=== PATIENT | male | born 1975 | race Caucasian/White ===

== ENCOUNTER 2021-06-01 03:32 | Emergency (ER) | payer OTHER, SELFPAY ==
--- NOTE | ~2021-06-01 | CT_ITS ---
EXAMINATION: CT brain wo con DATE: 06/01/2021 04:05 INDICATION: Headache. TECHNIQUE: Computed tomography (CT) of the head was performed without intravenous contrast. The mA wa s adjusted according to patient size. Iterative reconstruction technique was employed. The dose-lengt h product was 681.00 mGy-cm. COMPARISON: Head CT 07/15/2012, brain MRI 07/18/2012 FINDINGS: There are scattered areas of low attenuation in the cerebral white matter. There is no intr acranial hemorrhage, acute infarction, or abnormal intracranial mass lesion. The ventricles are sumeet l in size. There is mucosal thickening in left maxillary sinus. The mastoid air cells are normal. The orbits are normal. IMPRESSION: 1. Stable moderate nonspecific cerebral white matter disease, most likely multiple sclerosis. Reviewed, dictated and finalized at location A. RAL WAREHOUSE ASSOCIATE IMPRESSION: 1. Stable moderate nonspecific cerebral white matter disease, most likely multi ple sclerosis.
--- NOTE | ~2021-06-01 | XR_ITS ---
EXAMINATION: XR chest 2V DATE: 06/01/2021 04:16 INDICATION: Chest pain. TECHNIQUE: Frontal and lateral views of the chest were obtained. COMPARISON: Chest 2 views 04/13/2017 FINDINGS: Calcified left lung nodules are consistent with old granulomatous disease. There is mild at electasis at left lung base. No pleural effusion or pneumothorax without size is normal. IMPRESSION: 1. Mild atelectasis at left lung base. Reviewed, dictated and finalized at location A. ERN DUPLICATOR
--- NOTE | 2021-06-01 03:43 | ECG_ITS ---
Measurements Intervals [place] Rate: 68 P: 65 MT: 170 QRS: 23 QRSD: 96 T: 47 QT: 411 QTc: 438 Interpretive Statements SINUS RHYTHM POSSIBLE RIGHT VENTRICULAR CONDUCTION DELAY NO PREVIOUS ECG AVAILABLE FOR COMPARISON Electronically Signed On 06-01-2021 9:45:41 ADMISSIONS COUNSELOR by Shaheen Almanzar M.D.
[2021-06-01 03:44] VITALS: BP 139/90; PULSE 76; RESP 16; TEMP 37.2; O2SAT 97
--- NOTE | 2021-06-01 03:54 | ED.CHESTPAIN ---
HPI - Chest Pain General Chief Complaint: Headache Stated Complaint: heart attack symptoms , headache, blurred vision Time Seen by Provider: 06/01/21 03:50 Source: patient Mode of arrival: ambulatory Limitations: no limitations History of Present Illness HPI narrative: Patient is a 46-year-old male complaining of heart attack symptoms described as left upper extremity pain, 6 out of 10, radiating to left neck accompanied by headache and blurred vision that started this morning. Patient also states that he has been short of breath on exertion the past few days. Patient denies any chest pain, abdominal pain, nausea, vomiting, diaphoresis, fever or chills. Related Data Allergies Allergy/AdvReac Type Severity Reaction Status Date / Time No Known Allergies Allergy Unverified 07/26/12 10:46 Review of Systems Review of Systems: All systems reviewed & are unremarkable except as noted in HPI and below Constitutional: Constitutional: Denies body ache(s), Denies chills, Denies excessive sweating, Denies fatigue, Denies fever(s), Denies headache(s), Denies lethargy, Denies malaise, Denies weakness and Denies weight loss Eyes: Eyes: Denies blurry vision, Denies change in vision and Denies loss of vision ENT: Denies dizziness, Denies ear discharge, Denies headache(s), Denies lip swelling, Denies epistaxis, Denies nasal congestion, Denies neck pain, Denies throat swelling and Denies tongue swelling Cardiovascular: Cardiovascular: Denies chest pain, Denies chest pain at rest, Denies chest pain with activity, Denies diaphoresis, Denies rapid heart rate, Denies edema, Denies irregular heart rhythm, Denies lightheadedness, Denies palpitations, Denies dyspnea and Denies dyspnea on exertion Respiratory: Respiratory: Denies chest congestion, Denies cough, Denies hemoptysis, Denies dyspnea and Denies dyspnea on exertion Gastrointestinal: Gastrointestinal: Denies abdominal pain, Denies melena, Denies hematochezia, Denies diarrhea, Denies nausea, Denies vomiting and Denies hematemesis Musculoskeletal: Musculoskeletal: Denies abnormal gait, Denies deformity, Denies joint swelling, Denies limited range of motion, Denies neck pain and Denies numbness Neurologic: Denies Abnormal speech present, Denies abnormal gait, Denies confusion, Denies dizziness, Denies focal weakness, Denies loss of vision, Denies numbness, Denies Other visual disturbances, Denies Sensory deficit (Neuro) and Denies weakness Psychiatric: Psychiatric: Denies confusion, Denies depression, Denies auditory hallucinations, Denies homicidal ideation and Denies suicidal ideation Endocrine: Endocrine: Denies cold intolerance, Denies excessive sweating, Denies fatigue, Denies heat intolerance and Denies palpitations Hematologic/Lymphatic: Hematologic/Lymphatic: Denies easy bleeding and Denies easy bruising Allergic/Immunologic: Allergic/Immunologic: Denies lip swelling, Denies throat swelling and Denies tongue swelling PMFSH Family History Family History Mother Family history of heart disease in male family member before age 55 Other Cerebrovascular accident Family history of allergic disorder Hypertension Social History Social History Alcohol intake: current Comments Past medical history: Hypertension Social history: Smoker, occasional EtOH use, denies any drug use Exam Const: General: cooperative, healthy appearing, comfortable, no acute distress, well developed, alert and awake; No confusion Orientation/consciousness: oriented to person, oriented to place, oriented to time, patient oriented x3 and No confusion Limitations: no limitations HENMT: Head: normal to inspection, normocephalic and atraumatic Ears: hearing grossly normal bilaterally, TM normal on the right and TM normal on the left General nose exam: Normal external nose present, Normal nares present and N
[2021-06-01 03:57] LABS: Basophils Absolute Auto 0.1 K/mm3 (0.0-0.1); Basophils Percent Auto 0.9 % (0.2-1.2); Eosinophils Absolute Auto 0.2 K/mm3 (0-0.3); Eosinophils Percent Auto 1.9 % (0-4.4); Hematocrit 47.9 % (42.0-52.0); Hemoglobin 16.4 g/dL (14.0-18.0); Immature Granulocyte Absolute 0.04 K/mm3 (0.00-0.031); Immature Granulocyte Percent A 0.4 % (0-0.5); Lymphocytes Absolute Auto 1.86 K/mm3 (0.9-3.2); Lymphocytes Percent Auto 19.4 % (18.3-44.2); Mean Corpuscular HGB Conc 34.2 g/dl (32-36); Mean Corpuscular Hemoglobin 31.5 pg (26-34); Mean Corpuscular Volume 91.9 fl (80-100); Mean Platelet Volume 10.1 fl (7.4-10.4); Monocytes Absolute Auto 1.5 K/mm3 (0.1-0.6); Monocytes Percent Auto 15.5 % (2.6-8.5); Neutrophils Percent Auto 61.9 % (45.5-73.1); Platelet Count Result 243 k/mm3 (150-375); Red Blood Count 5.21 M/mm3 (4.6-6.20); Red Cell Distribution Width 13.5 % (11.5-14.5); White Blood Count 9.6 K/mm3 (4.5-10.0)
[2021-06-01 04:06] LABS: Prothrombin Time 12.4 Seconds (11.1-14.7)
[2021-06-01 04:07] LABS: Partial Thromboplastin Time 29.8 SECONDS (22.3-36.8)
[2021-06-01 04:09] LABS: Alanine Aminotransferase 29 U/L (4-50); Albumin Level 4.3 g/dL (3.5-5.1); Alkaline Phosphatase 82 U/L (38-126); Anion Gap 7 mmol/L (8-16); Aspartate Amino Transferase 30 U/L (17-59); Bilirubin,Total 0.4 mg/dL (0.2-1.3); Blood Urea Nitrogen 12 mg/dL (9-20); Calcium 9.1 mg/dL (8.4-10.2); Carbon Dioxide 26 mmol/L (22-30); Chloride 106 mmol/L (98-107); Estimated CRCL calculation 123 ml/min; Estimated Glomerular Filt Rate > 60; Glucose 105 mg/dL (65-110); Potassium 3.9 mmol/L (3.4-5.0); Sodium 139 mmol/L (137-145)
[2021-06-01] MEDS: ACETAMINOPHEN 500 MG TABLET 1000 MG PO (04:15)
[2021-06-01] MEDS: ASPIRIN 81 MG CHEWABLE TABLET 324 MG PO (04:16)
[2021-06-01 04:21] LABS: Troponin I < 0.012 ng/mL (0.000-0.034)
[2021-06-01 05:24] VITALS: BP 110/72; PULSE 70; RESP 16; O2SAT 99
[2021-06-01 06:29] VITALS: BP 112/68; PULSE 71; RESP 15; O2SAT 98
== END 2021-06-01 06:32 | disposition left against medical advice (07) ==
PROVIDERS: Emergency Provider Emergency Medicine; PCP Family Medicine Adolescent Medicine
DX: R07.9 Chest pain, unspecified (principal); R51.9 Headache, unspecified; I10 Essential (primary) hypertension; F17.200 Nicotine dependence, unspecified, uncomplicated; R94.31 Abnormal electrocardiogram [ECG] [EKG]
CPT/HCPCS: 36415; 70450; 71046; 80053; 84484; 85025; 85610; 85730; 93005; 99284; A9270

== ENCOUNTER 2021-06-11 15:16 | Outpatient (CLI) | payer OTHER, SELFPAY ==
--- NOTE | ~2021-06-11 | US_ITS ---
EXAMINATION: US carotid duplex BI DATE: 06/11/2021 15:54 INDICATION: Atherosclerosis. Visual disturbances. TECHNIQUE: Grayscale, color Doppler, and pulsed Doppler images of the cervical carotid arteries were obtained. The degree of vessel stenosis is placed in one of the following categories: normal, <50%, 5 0-69%, >=70% but less than near-occlusion, near-occlusion, or total occlusion. Note that percent sten osis relative to normal distal artery lumen diameter is indirectly measured from velocity measurement s as described by Manpreet, et al. Radiology 2003; 229:340-346. Notes: Normal: Peak systolic velocity <125 centimeters/sec and no plaque <50%. Peak systolic velocity <125 ( EDV <40; ICA/CCA PSV ratio <2.0; used these factors only a tandem lesions or low cardiac output or co ntralateral disease) 50-69 %: PSV 125-230 (EDV 40-100; ratio 2-4) >= 70% but less than near occlusion: PSV greater than 230 (EDV > 100; ratio> 4.0) Near Occlusion: PSV that is variable; markedly narrowed lumen Occlusion: Absent flow on color/spectral Doppler and no lumen on pond scale. COMPARISON: None. FINDINGS: RIGHT: The right common carotid artery (CCA) peak systolic velocity (PSV) is 121 cm/s. The right internal ca rotid artery (ICA) PSV is 112 cm/s. The right ICA end-diastolic velocity (EDV) is 40 cm/s. The right ICA/CCA PSV ratio is 0.9. The external carotid artery (ECA) PSV is 89 cm/s. There is antegrade flow i n the right vertebral artery. LEFT: The left CCA PSV is 133 cm/s. The left ICA PSV is 102 cm/s. The left ICA EDV is 44 cm/s. The left ICA /CCA PSV ratio is 0.8. The ECA PSV is 100 cm/s. There is antegrade flow in the left vertebral artery . IMPRESSION: 1. Less than 50% stenosis in the right internal carotid artery by sonographic criteria. 2. Less than 50% stenosis in the left internal carotid artery by sonographic criteria. Reviewed, dictated and finalized at location B. IMPRESSION: 1. Less than 50% stenosis in the right internal carotid artery by sonographic c mallorie. 2. Less than 50% stenosis in the left internal carotid artery by sonographic cr jose d.
== END 2021-06-11 15:17 | disposition home or self-care (01) ==
LOC: ANHIMG 15:20
PROVIDERS: PCP Family Medicine Adolescent Medicine; Visit Provider Physician Assistant
DX: R07.89 Other chest pain (principal); H53.9 Unspecified visual disturbance; I65.23 Occlusion and stenosis of bilateral carotid arteries
CPT/HCPCS: 93880

== ENCOUNTER → 2021-06-23 13:58 | Outpatient (CLI) | payer OTHER, SELFPAY ==
--- NOTE | ~2021-06-23 | MR_ITS ---
EXAMINATION: MR brain/brain stem wo/w con DATE: 06/23/2021 15:14 INDICATION: Unspecified visual disturbance. TECHNIQUE: Magnetic resonance imaging (MRI) of the brain and brainstem was performed without and with 19 mL MultiHance intravenous contrast. Sequences included sagittal and axial T1-weighted FLAIR, axia l T1-weighted FSE, axial diffusion-weighted FS EPI, sagittal T2-weighted FLAIR, axial T2*-weighted GR E, axial T2-weighted FLAIR Propeller, and axial T2-weighted Propeller. Postcontrast sequences include d axial, coronal, and sagittal T1-weighted FSE. Apparent diffusion coefficient (ADC) maps were create d. COMPARISON: Brain MRI 07/18/2012, CT 06/01/2021 FINDINGS: There are greater than 40 total lesions of increased T2-weighted signal intensity in the br ain. Of these lesions, many are periventricular, several are juxtacortical, and one is infratentorial . None of the lesions enhance. There is no acute ischemic infarct or intracranial hemorrhage. The lisa tricles are normal in size. The mastoid air cells are normal. There is mild mucosal thickening left m axillary sinus. The orbits are normal. IMPRESSION: 1. Brain white matter lesions, mildly worsened from 07/18/2012, likely multiple sclerosis. Reviewed, dictated and finalized at location A.
--- NOTE | ~2021-06-23 | MR_ITS ---
EXAMINATION: MR cervical spine wo/w con DATE: 06/23/2021 15:15 INDICATION: Multiple sclerosis. Unspecified visual disturbance. TECHNIQUE: Magnetic resonance imaging (MRI) of the cervical spine was performed without and with 19 m L MultiHance intravenous contrast. Sequences included sagittal and axial T2-weighted FSE, sagittal T2 -weighted FS FSE, and sagittal and axial T1-weighted FSE. Postcontrast sequences included sagittal an d axial T1-weighted FS FSE. COMPARISON: None FINDINGS: There is 5 degrees levocurvature of cervical spine. There is mild chronic anterior wedging of T1 vertebral body. There is mildly decreased disc height at C5-C6. There is a lesion of increased T2-weighted signal intensity in the spinal cord at C2 on the left. No abnormal contrast enhancement. The following disc levels are specifically discussed: C2-C3: There is a central extrusion. There is no uncovertebral joint osteoarthritis. There is mild bi lateral facet joint osteoarthritis. There is no neural foraminal stenosis. There is no central canal stenosis. C3-C4: The disc does not extend beyond the endplate margin. There is mild right and severe left uncov ertebral joint osteoarthritis. There is severe right and mild left facet joint osteoarthritis. There is mild right and moderate left neural foraminal stenosis. There is no central canal stenosis. C4-C5: The disc is bulging. There is mild right and moderate left uncovertebral joint osteoarthritis. There is mild right and moderate left facet joint osteoarthritis. There is mild right and moderate l eft neural foraminal stenosis. There is mild central canal stenosis. C5-C6: There is a central extrusion. There is mild bilateral uncovertebral joint osteoarthritis. Ther e is moderate right and mild left facet joint osteoarthritis. There is mild bilateral neural foramina l stenosis. There is mild central canal stenosis. C6-C7: The disc does not extend beyond the endplate margin. There is mild left uncovertebral joint os teoarthritis. There is mild right facet joint osteoarthritis. There is no neural foraminal stenosis. There is no central canal stenosis. C7-T1: The disc does not extend beyond the endplate margin. There is no uncovertebral joint osteoarth ritis. There is severe bilateral facet joint osteoarthritis. There is mild bilateral neural foraminal stenosis. There is no central canal stenosis. IMPRESSION: 1. Spinal cord lesion at C2, consistent with multiple sclerosis. 2. Moderate cervical spondylosis. Reviewed, dictated and finalized at location A.
[2021-06-23 14:26] LABS: Estimated Glomerular Filt Rate > 60
== END ==
PROVIDERS: PCP Family Medicine Adolescent Medicine; Visit Provider Physician Assistant
DX: H53.9 Unspecified visual disturbance (principal); G95.9 Disease of spinal cord, unspecified; M47.813 Spondylosis without myelopathy or radiculopathy, cervicothoracic region; M48.03 Spinal stenosis, cervicothoracic region
CPT/HCPCS: 70553; 72156; A9577

== ENCOUNTER 2022-11-24 08:34 | Outpatient (CLI) | payer OTHER, SELFPAY ==
--- NOTE | 2022-11-24 08:58 | EST_ITS ---
Patient Info Name: Bolivar Larose Age: 47 years : 1975 Gender: Male Ht: 72 in Wt: 220 lbs BSA: 2.27 m2 Exam Date: 11/24/2022 9:12 AM Exam Location: [facility] Stress Patient Status: Outpatient Admit Date: 11/24/2022 Staff Ordering Physician: Shahrzad Hanna APRN Attending Provider: Shahrzad Hanna APRN Exercise Technologist: Jodi Castle RDCS Exercise Physician: Percy Park DO Exam Type: CA stress test treadmill Study Info Indications R42 - Dizziness and giddiness R06.09 - Other forms of dyspnea A treadmill exercise stress test was performed. Summary 1. 1. Negative Ace exercise stress test for ischemic ST changes by ECG criteria. 2. 2. Reduced functional capacity, achieving 10 METs of workload. 3. 3. Appropriate HR response to exercise. 4. 4. Appropriate HR recovery at 1 minute post exercise. 5. 5. No imaging with stress testing. 6. 6. Patient informed of the above results. Protocol: Ace Stress ECG Details Stage: REST Duration (min): 0 min : 48 sec Speed (mph): 0.0 Grade (%): 0 HR (bpm): 60 SBP (mmHg): 119 DBP (mmHg): 86 METS: --- Stage: REST Duration (min): 12 min : 25 sec Speed (mph): 0.0 Grade (%): 0 HR (bpm): 72 SBP (mmHg): 119 DBP (mmHg): 86 METS: --- Stage: STAGE 1 Duration (min): 1 min : 0 sec Speed (mph): 1.7 Grade (%): 10 HR (bpm): 105 SBP (mmHg): 119 DBP (mmHg): 86 METS: --- Stage: STAGE 1 Duration (min): 2 min : 0 sec Speed (mph): 1.7 Grade (%): 10 HR (bpm): 112 SBP (mmHg): 119 DBP (mmHg): 86 METS: --- Stage: STAGE 1 Duration (min): 3 min : 0 sec Speed (mph): 1.7 Grade (%): 10 HR (bpm): 112 SBP (mmHg): 169 DBP (mmHg): 80 METS: --- Stage: STAGE 2 Duration (min): 1 min : 0 sec Speed (mph): 2.5 Grade (%): 12 HR (bpm): 124 SBP (mmHg): 169 DBP (mmHg): 80 METS: --- Stage: STAGE 2 Duration (min): 2 min : 0 sec Speed (mph): 2.5 Grade (%): 12 HR (bpm): 136 SBP (mmHg): 157 DBP (mmHg): 82 METS: --- Stage: STAGE 2 Duration (min): 3 min : 0 sec Speed (mph): 2.5 Grade (%): 12 HR (bpm): 137 SBP (mmHg): 157 DBP (mmHg): 82 METS: --- Stage: STAGE 3 Duration (min): 1 min : 0 sec Speed (mph): 3.4 Grade (%): 14 HR (bpm): 149 SBP (mmHg): 178 DBP (mmHg): 88 METS: --- Stage: STAGE 3 Duration (min): 2 min : 0 sec Speed (mph): 3.4 Grade (%): 14 HR (bpm): 153 SBP (mmHg): 178 DBP (mmHg): 88 METS: --- Stage: STAGE 3 Duration (min): 2 min : 0 sec Speed (mph): 3.4 Grade (%): 14 HR (bpm): 153 SBP (mmHg): 178 DBP (mmHg): 88 METS: --- Stage: RECOVERY Duration (min): 0 min : 59 sec Speed (mph): 0.0 Grade (%): 0 HR (bpm): 118 SBP (mmHg): 172 DBP (mmHg): 95 METS: --- Stage: RECOVERY Duration (min): 1 min : 59 sec Speed (mph): 0.0 Grade (%): 0 HR (bpm): 98 SBP (mmHg): 172 DBP (mmHg): 95 METS: ---
== END 2022-11-24 08:35 | disposition home or self-care (01) ==
PROVIDERS: PCP Family Medicine Adolescent Medicine; Visit Provider Nurse Practitioner Family
DX: R06.09 Other forms of dyspnea (principal); R42 Dizziness and giddiness; Z13.220 Encounter for screening for lipoid disorders
CPT/HCPCS: 93017

== ENCOUNTER 2024-06-17 16:10 | Outpatient (CLI) | payer OTHER, SELFPAY ==
--- NOTE | ~2024-06-17 | CT_ITS ---
EXAMINATION: CT lung screening DATE: 06/17/2024 16:21 INDICATION: F17.200 - Nicotine dependence, unspecified, uncomplicated TECHNIQUE: Computed tomography (CT) of the chest was performed without intravenous contrast. Addition al 3D reconstructions utilizing coronal maximum intensity projection (MIP) were performed. Automated exposure control and iterative reconstruction technique were employed. The dose-length product was 11 6.20 mGy-cm. COMPARISON: None FINDINGS: Mild emphysema. 9 mm centrally calcified nodule at the right lung base along with calcified right hil ar and mediastinal lymph nodes consistent with old granulomatous disease. 5 suspicious noncalcified p ulmonary nodules, pneumonia, pulmonary edema or pleural effusion. Heart size is normal. Atherosclerot ic coronary artery calcifications. No pericardial effusion. Thoracic aorta is normal in caliber. No p athologically enlarged thoracic lymphadenopathy. Visualized upper abdomen is unremarkable. Mild thora cic spondylosis. IMPRESSION: 1. Lung-RADS category 1: Negative. Continue annual screening with noncontrast low-dose chest CT in 12 months. Reviewed, dictated and finalized at location B. IMPRESSION: 1. Lung-RADS category 1: Negative. Continue annual screening with noncontrast l ow-dose chest CT in 12 months.
== END 2024-06-17 16:11 | disposition home or self-care (01) ==
LOC: MICIMG 16:11
PROVIDERS: PCP Family Medicine Adolescent Medicine; Visit Provider Family Medicine
DX: Z12.2 Encounter for screening for malignant neoplasm of respiratory organs (principal); Z87.891 Personal history of nicotine dependence
CPT/HCPCS: 71271

== ENCOUNTER 2024-12-17 16:15 | Emergency (ER) | payer OTHER, SELFPAY ==
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
--- OUTSIDE RECORDS SUMMARY | 2024-12-17 16:17 | XMS_ITS | Encounter Summary ---
Author Organization [facility] Healthcare Address [address] [place] [address] Care Team Providers Care Seafood Farmer Name Role Phone Aidan Almonte MD Primary Care Prov ider No, Physician Primary Care Provider [phone] Aidan Almonte MD Primary Care Prov ider Aidan Almonte MD Unavailable + Didier Mccarthy MD Unavailable [phone] Encounter Details Date Type Department Care Team (Late st Contact Info) Description 12/10/2020 Telephone [facility] [address] [place] [address] Transcribed Order, Provider Social History Tobacco Use Types Packs/Day Years Used Date Smoking Tobacco: Every Day Cigarettes 1 32 Smokeless Tobacco: Never Alcohol Use Standard Drinks/Week Comments Yes 0 (1 standard drink = 0.6 oz pur e alcohol) occ Sex and Gender Information Value Date Recorded Sex Assigned at Not on file Legal Sex Male 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 Gender Identity Male 06/02/2020 11:12 AM MATERNAL CHILD NURSE Sexual Orientation Straight 06/02/2020 11 :12 AM MATERNAL CHILD NURSE documented as of this encounter Plan of Treatment Not on file documented as of this encounter Visit Diagnoses Not on filedocumented in this encounter Care Teams Seafood Farmer Relationship Specialty Start Date End Date Aidan Almonte MD PCP - General 08/03/16 10/23/21 No, Physician PCP - General 10/24/21 10/24/21 Aidan Almonte MD PCP - General Family Medicine 10/25/21 Aidan Almonte MD 10/24/21 Didier Mccarthy MD [address] [place] [address] [place] [address] Referring Physician Psychiatry 05/05/22 documented as of this encounter
--- OUTSIDE RECORDS SUMMARY | 2024-12-17 16:17 | XMS_ITS | Encounter Summary ---
Author Organization [facility] Address [address] [place] [address] Phone Care Team Providers Care Documentation Liaison Name Role Phone Aidan Almonte MD Primary Care Prov ider Aidan Almonte MD Unavailable + Didier Mccarthy MD Unavailable [phone] Reason for Visit * Reason Onset Date Comments WORK STATUS 01/20/2022 Encounter Details Date Type Department Care Team (Late st Contact Info) Description 01/20/2022 Telephone [facility] 6[address] [place] [address] [place] [address] Vandana Pal RN WORK STATUS Social History Tobacco Use Types Packs/Day Years Used Date Smoking Tobacco: Every Day Cigarettes 1 35 Smokeless Tobacco: Never Alcohol Use Standard Drinks/Week Comments Yes 0 (1 standard drink = 0.6 oz pur e alcohol) occ Sex and Gender Information Value Date Recorded Sex Assigned at Not on file Legal 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 Male 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
--- OUTSIDE RECORDS SUMMARY | 2024-12-17 16:17 | XMS_ITS | Clinical Summary ---
Author Organization [facility] Address [address] [place] [address] Phone Care Team Providers Care Aircraft Riveter Name Role Phone Unavailable Primary Care Provider Unavailabl e Allergies No known active allergies Medications tamsulosin (FLOMAX) 0.4 mg capsule Take 0.4 mg by mouth daily. Active solifenacin (VESICARE) 5 mg Tablet Take 5 mg by mouth daily. Active interferon beta-1a, albumin, (AVONEX) 30 mcg KitIndications :Pt takes REBIF Inject 30 mcg by intramuscular injection every 7 days. Active folic acid (FOLVITE) 400 mcg Tablet Take 400 mcg by mouth daily. Active thiamine (VITAMIN B-1) 100 mg tablet Take 1 Tablet (100 mg) by mouth daily. 5 Active traZODone (DESYREL) 50 mg tablet Take 1 Tablet (50 mg) by mouth nightly as needed for Insomnia. 30 Tablet 0 5 Active risperiDONE (RISPERDAL) 1 mg tabletIndicati ons:Halluciant ions. Take 1 Tablet (1 mg) by mouth daily at bedtime. 30 Tablet 0 5 Active clonazePAM (KLONOPIN) 0.5 mg Tablet Take 1 Tablet (0.5 mg) by mouth 2 times daily as needed for Anxiety. 20 Tablet 0 5 Active risperiDONE (RISPERDAL) 0.5 mg tabletIndicati ons:paranoia Take 1 Tablet (0.5 mg) by mouth daily after breakfast. 30 Tablet 0 5 Active Active Problems Problem Noted Date Diagnosed Date Delirium due to another medical condition 2014 Major depressive disorder, r ecurrent, severe with psychotic features 01/28/2015 Alcohol abuse 01/28/2015 Psychotic disorder with hallucinations 5 Tobacco use 01/27/2015 Acute encephalopathy MS (multiple sclerosis) Suicidal ideations Social History Tobacco Use Types Packs/Day Years Used Date Smoking Tobacco: Every Day Cigarettes Alcohol Use Standard Drinks/Week Comments Yes 0 (1 standard drink = 0.6 oz pur e alcohol) Sex and Gender Information Value Date Recorded Sex Assigned at Not on file Legal Sex Male 10:30 PM PUSHER OPERATOR Gender Identity Not on file Sexual Orientation Not on file Last Filed Vital Signs Vital Sign Reading Time Taken Comments Blood Pressure 104/72 01/30/2015 8:37 AM PUSHER OPERATOR Pulse 68 01/30/2015 8:37 AM PUSHER OPERATOR Temperature 36.6 C (97.8 F) 01/30/2015 8:37 AM PUSHER OPERATOR Respiratory Rate 16 01/30/2015 8:37 AM PUSHER OPERATOR Oxygen Saturation 98% 01/30/2015 8:37 AM PUSHER OPERATOR Inhaled Oxygen Concentration - - Weight 81.2 kg (179 lb 1.6 oz) 01/29/2015 3:36 P M PUSHER OPERATOR Height 185.4 cm (6' 1) 01/28/2015 3:13 PM PUSHER OPERATOR Body Mass Index 23.63 01/28/2015 3:13 PM PUSHER OPERATOR Plan of Treatment Health Maintenance Due Date Last Done Comments DTAP/TDAP/TD VACCINES (1 - Tdap) 1993 HEPATITIS B VACCINES (1 of 3 - 19+ 3-dose series) 04/28 COLORECTAL SCREENING 2019 Colorectal Cancer Screening 2019 FIT-DNA Q 3 years 2019 FIT/FOBT Q 1 year 2019 Flex Sig/CT Colonography Q 5 years 2019 ZOSTER VACCINE (1 of 2) 2024 INFLUENZA VACCINE (#1) 2024 Insurance [facility] OPT[employer] PPO [id number] Advance Directives For more information, please contact: [phone] * Full Code (Latest Code Status on File) Date Activated Date Inactivated Comments 01/28/2015 3:14 PM 01/30/2015 2:53 PM
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
--- OUTSIDE RECORDS SUMMARY | 2024-12-17 16:17 | XMS_ITS | Encounter Summary ---
Author Organization [facility] Healthcare Address [address] [place] [address] Care Team Providers Care Manual Tester Name Role Phone Aidan Almonte MD Primary Care Prov ider Aidan Almonte MD Unavailable + Didier Mccarthy MD Unavailable [phone] Encounter Details Date Type Department Care Team (Late st Contact Info) Description 05/29/2023 Telephone [facility] [address] [address] Elizabeth Garcia, NATALIE Social History Tobacco Use Types Packs/Day Years Used Date Smoking Tobacco: Every Day Cigarettes 1 35 Smokeless Tobacco: Never Alcohol Use Standard Drinks/Week Comments Yes 0 (1 standard drink = 0.6 oz pur e alcohol) occ Sex and Gender Information Value Date Recorded Sex Assigned at Not on file Legal Sex Male 10:13 AM BASKET HAND WEAVER Gender Identity Male 06/02/2020 11:12 AM BASKET HAND WEAVER Sexual Orientation Straight 06/02/2020 11 :12 AM BASKET HAND WEAVER documented as of this encounter Plan of Treatment Not on file documented as of this encounter Visit Diagnoses Not on filedocumented in this encounter Care Teams Manual Tester Relationship Specialty Start Date End Date Aidan Almonte MD PCP - General Family Medicine 10/25/21 Aidan Almonte MD 10/24/21 Didier Mccarthy MD [address] [place] [address] Referring Physician Psychiatry 05/05/22 documented as of this encounter
--- OUTSIDE RECORDS SUMMARY | 2024-12-17 16:17 | XMS_ITS | Encounter Summary ---
Author Organization [facility] Healthcare Address [address] [place] [address] Care Team Providers Care Supervisor [employer] Name Role Phone Aidan Almonte MD Primary Care Prov ider Aidan Almonte MD Unavailable + Didier Mccarthy MD Unavailable [phone] Encounter Details Date Type Department Care Team (Late st Contact Info) Description 06/11/2024 Telephone [facility] [address] [address] Elizabeth Garcia, NATALIE Social History Tobacco Use Types Packs/Day Years Used Date Smoking Tobacco: Every Day Cigarettes 1 35 Smokeless Tobacco: Never Alcohol Use Standard Drinks/Week Comments Yes 0 (1 standard drink = 0.6 oz pur e alcohol) occ Sex and Gender Information Value Date Recorded Sex Assigned at Not on file Legal Sex Male 10:13 AM ROUTE DELIVERY MANAGER Gender Identity Male 06/02/2020 11:12 AM ROUTE DELIVERY MANAGER Sexual Orientation Straight 06/02/2020 11 :12 AM ROUTE DELIVERY MANAGER documented as of this encounter Plan of Treatment Not on file documented as of this encounter Visit Diagnoses Not on filedocumented in this encounter Care Teams Supervisor [employer]rication Relationship Specialty Start Date End Date Aidan Almonte MD PCP - General Family Medicine 10/25/21 Aidan Almonte MD 10/24/21 Didier Mccarthy MD [address] [facility] [place] [address] Referring Physician Psychiatry 05/05/22 documented as of this encounter
--- OUTSIDE RECORDS SUMMARY | 2024-12-17 16:17 | XMS_ITS | Encounter Summary ---
Author Organization [facility] [employer] [facility] Address [address] [place] [address] Phone Care Team Providers Care Camp Cook Name Role Phone Aidan Almonte MD Primary Care Prov ider Aidan Almonte MD Unavailable + Didier Mccarthy MD Unavailable [phone] Reason for Visit * Reason Onset Date Comments IMPAIRMENT RATING 03/22/2022 Encounter Details Date Type Department Care Team (Late st Contact Info) Description 03/22/2022 Telephone [facility] 6th [place] [address] [place] [address] Vandana Pal RN IMPAIRMENT RATING Social History Tobacco Use Types Packs/Day Years Used Date Smoking Tobacco: Every Day Cigarettes 1 35 Smokeless Tobacco: Never Alcohol Use Standard Drinks/Week Comments Yes 0 (1 standard drink = 0.6 oz pur e alcohol) occ Sex and Gender Information Value Date Recorded Sex Assigned at Not on file Legal Sex Male 10:13 AM TUG HAND Gender Identity Male 06/02/2020 11:12 AM TUG HAND Sexual Orientation Straight 06/02/2020 11 :12 AM TUG HAND documented as of this encounter Plan of Treatment Not on file documented as of this encounter Visit Diagnoses Not on filedocumented in this encounter Care Teams Camp Cook Relationship Specialty Start Date End Date Aidan Almonte MD PCP - General Family Medicine 10/25/21 Aidan Almonte MD 10/24/21 Didier Mccarthy MD [address] [place] [address] [place] [address] Referring Physician Psychiatry 05/05/22 documented as of this encounter
--- OUTSIDE RECORDS SUMMARY | 2024-12-17 16:17 | XMS_ITS | Patient Health Record ---
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 visit. 4. Cognitive issues: - Patient reports forgetfulness and word-finding problems, with no changes in MRI lesions for three years. Plan: - Schedule computerized cognitive testing as soon as possible - Consider potential contributing factors such as medication side effects, alcohol use, sleep disturbance, and mood symptoms. - Reevaluate cognitive issues at the next visit. 5. Employment and disability status: - Patient is currently off work due to cognitive issues and plans to return on the . Plan: - Monitor patient's ability to return to work and assess the need for any accommodations or further disability evaluation. 6. Therapy: - Patient is currently engaged in therapy. Plan: - Continue therapy to address mood symptoms, sleep disturbance, and cognitive issues. - Encourage patient to discuss any concerns or challenges during therapy sessions. 04/04/2024 Bipolar disorder, current episode depressed, moderate (ICD-10 - F31.32) 1. Bipolar disorder: - Patient reports increased irritability and agitation, but no euphoria. - Currently taking Depakote 250 mg once a day, with no noticeable effects. Plan: - Increase Depakote to 500 mg extended release at bedtime. - Continue monitoring mood symptoms and medication adherence. - Follow up in one month. 2. Sleep disturbance: - Patient reports poor sleep quality. Plan: - Assess the impact of increased Depakote dosage on sleep. - Encourage good sleep hygiene practices. - Reevaluate sleep issues at the next visit. 3. Auditory hallucinations: - Patient reports hearing things but not experiencing severe hallucinations. Plan: - Monitor for any changes or worsening of hallucinations. - Reassess at the next visit. 4. Cognitive issues: - Patient reports forgetfulness and word-finding problems, with no changes in MRI lesions for three years. Plan: - Schedule computerized cognitive testing as soon as possible - Consider potential contributing factors such as medication side effects, alcohol use, sleep disturbance, and mood symptoms. - Reevaluate cognitive issues at the next visit. 5. Employment and disability status: - Patient is currently off work due to cognitive issues and plans to return on the . Plan: - Monitor patient's ability to return to work and assess the need for any accommodations or further disability evaluation. 6. Therapy: - Patient is currently engaged in therapy. Plan: - Continue therapy to address mood symptoms, sleep disturbance, and cognitive issues. - Encourage patient to discuss any concerns or challenges during therapy sessions. 04/11/2024 Bipolar disorder, current episode depressed, moderate (ICD-10 - F31.32) Depressive Symptoms - Assessment: Patient reports feeling down, depressed, and hopeless most days, as well as difficulty concentrating and feelings of guilt. Patient is currently on medication (Depakote) and has reported some improvement. Patient reports the medication dosage was recently doubled. - Plan: - Continue monitoring depressive symptoms and medication effectiveness. - Follow up with Drew Leung for further evaluation and potential medication adjustments if needed. Agitation and Impulsivity - Assessment: Patient reports episodes of agitation and impulsivity, including a recent incident involving confrontation at a drive-thru. - Plan: - Encourage the patient to practice stress management techniques. - Consider referral to a therapist for additional support in managing emotions and impulsivity. Suicidal Ideation - Assessment: Patient reports occasional suicidal thoughts but denies intent or plan. Patient states That's not what we're gonna do. - Plan: - Continue to monitor for any increase in suicidal ideation. - Ensure the patient has access to crisis resources. Cognitive Functioning - Assessment: Patient reports completing a cognitive functioning test recently, but results are not yet available. - Plan: - Follow up to obtain test results and review with the patient. Return to Work - Assessment: Patient is scheduled to return to work on Monday and is experiencing anxiety about this. Patient reports being extremely nervous about going back and mentions past issues with staying awake during morning meetings. Patient states a doctor will be overseeing their return on Monday. - Plan: - Recommend the patient to discuss their concerns with their employer. - Provide necessary documentation from Dr. Farris (neurologist) and cognitive test results. Each section addresses a specific problem area and outlines a corresponding plan for treatment and support. 04/12/2024 Bipolar disorder, current episode depressed, moderate (ICD-10 - F31.32) 04/25/2024 Bipolar disorder, current episode depressed, moderate (ICD-10 - F31.32) 05/02/2024 Benign essential HTN (ICD-10 - I10) 07/01/2024 Bipolar disorder, current episode depressed, moderate (ICD-10 - F31.32) 07/08/2024 Alcohol abuse, uncomplicated (ICD-10 - F10.10) 07/08/2024 Bipolar disorder, current episode depressed, moderate (ICD-10 - F31.32) 07/15/2024 Alcohol abuse, uncomplicated (ICD-10 - F10.10) 07/15/2024 Bipolar disorder, current episode depressed, moderate (ICD-10 - F31.32) 07/22/2024 Bipolar disorder, current episode depressed, moderate (ICD-10 - F31.32) 07/26/2024 Encounter for screening for depression (ICD-10 - Z13.31) 08/27/2024 Alcohol abuse, uncomplicated (ICD-10 - F10.10) 08/27/2024 Bipolar disorder, current episode depressed, moderate (ICD-10 - F31.32) 09/10/2024 Alcohol abuse, uncomplicated (ICD-10 - F10.10) 09/10/2024 Bipolar disorder, current episode depressed, moderate (ICD-10 - F31.32) 09/24/2024 Bipolar disorder, current episode depressed, moderate (ICD-10 - F31.32) 09/30/2024 Encounter for screening for cardiovascular disorders (ICD-10 - Z13.6) 10/22/2024 Bipolar disorder, current episode depressed, moderate (ICD-10 - F31.32) 10/22/2024 Nicotine use (ICD-10 - Z72.0) 11/04/2024 Bipolar disorder, current episode depressed, moderate (ICD-10 - F31.32) 11/14/2024 Bipolar disorder, current episode depressed, moderate (ICD-10 - F31.32) 10/22/2024 Alcohol abuse, uncomplicated (ICD-10 - F10.10) 09/30/2024 Encounter for screening for depression (ICD-10 - Z13.31) 07/26/2024 Nicotine use (ICD-10 - Z72.0) 04/12/2024 Nicotine dependence, unspecified, uncomplicated (ICD-10 - F17.200) 05/02/2024 Bipolar disorder, current episode depressed, moderate (ICD-10 - F31.32) 02/07/2024 Nicotine dependence, unspecified, uncomplicated (ICD-10 - F17.200) 1. Paranoid symptoms: - Patient reports ongoing paranoid symptoms. No significant changes in mood or manic-type symptoms are reported. Plan: - Continue Caplyta as prescribed. Monitor for any changes in mood or paranoid symptoms. 2. Cognitive impairment and fatigue: - Patient is currently on leave from work due to cognitive impairment, severe fatigue, and worsening balance as per their neurologist. Plan: - Await results from the ordered neuropsych testing and MRI of the brain. - Follow up with the neurologist for further evaluation and management. 3. Sleep and fatigue management: - Patient is on modafinil and Concerta (methylphenidat e ER) for sleep and fatigue management. Plan: - Continue modafinil and Concerta as prescribed. Monitor for any changes in sleep patterns or fatigue levels. 4. Alcohol use: - Patient reports alcohol use but has stopped taking naltrexone. Plan: - Assess the patient's alcohol consumption and consider restarting naltrexone if appropriate. - Encourage the patient to monitor their alcohol intake and seek support if needed. 5. Trazodone discontinuation : - Patient reports not taking trazodone. Plan: - Acknowledge the patient's decision to discontinue trazodone and monitor for any changes in sleep or mood. 6. Follow-up: - Schedule a follow-up appointment to review the results of the neuropsych testing and MRI of the brain. - Monitor the patient's progress and adjust the treatment plan as needed based on the results and any changes in the patient's condition. 04/11/2024 Alcohol abuse, uncomplicated (ICD-10 - F10.10) Depressive Symptoms - Assessment: Patient reports feeling down, depressed, and hopeless most days, as well as difficulty concentrating and feelings of guilt. Patient is currently on medication (Depakote) and has reported some improvement. Patient reports the medication dosage was recently doubled. - Plan: - Continue monitoring depressive symptoms and medication effectiveness. - Follow up with Drew Leung for further evaluation and potential medication adjustments if needed. Agitation and Impulsivity - Assessment: Patient reports episodes of agitation and impulsivity, including a recent incident involving confrontation at a drive-thru. - Plan: - Encourage the patient to practice stress management techniques. - Consider referral to a therapist for additional support in managing emotions and impulsivity. Suicidal Ideation - Assessment: Patient reports occasional suicidal thoughts but denies intent or plan. Patient states That's not what we're gonna do. - Plan: - Continue to monitor for any increase in suicidal ideation. - Ensure the patient has access to crisis resources. Cognitive Functioning - Assessment: Patient reports completing a cognitive functioning test recently, but results are not yet available. - Plan: - Follow up to obtain test results and review with the patient. Return to Work - Assessment: Patient is scheduled to return to work on Monday and is experiencing anxiety about this. Patient reports being extremely nervous about going back and mentions past issues with staying awake during morning meetings. Patient states a doctor will be overseeing their return on Monday. - Plan: - Recommend the patient to discuss their concerns with their employer. - Provide necessary documentation from Dr. Farris (neurologist) and cognitive test results. Each section addresses a specific problem area and outlines a corresponding plan for treatment and support. 04/04/2024 Alcohol abuse, uncomplicated (ICD-10 - F10.10) 1. Bipolar disorder: - Patient reports increased irritability and agitation, but no euphoria. - Currently taking Depakote 250 mg once a day, with no noticeable effects. Plan: - Increase Depakote to 500 mg extended release at bedtime. - Continue monitoring mood symptoms and medication adherence. - Follow up in one month. 2. Sleep disturbance: - Patient reports poor sleep quality. Plan: - Assess the impact of increased Depakote dosage on sleep. - Encourage good sleep hygiene practices. - Reevaluate sleep issues at the next visit. 3. Auditory hallucinations: - Patient reports hearing things but not experiencing severe hallucinations. Plan: - Monitor for any changes or worsening of hallucinations. - Reassess at the next visit. 4. Cognitive issues: - Patient reports forgetfulness and word-finding problems, with no changes in MRI lesions for three years. Plan: - Schedule computerized cognitive testing as soon as possible - Consider potential contributing factors such as medication side effects, alcohol use, sleep disturbance, and mood symptoms. - Reevaluate cognitive issues at the next visit. 5. Employment and disability status: - Patient is currently off work due to cognitive issues and plans to return on the . Plan: - Monitor patient's ability to return to work and assess the need for any accommodations or further disability evaluation. 6. Therapy: - Patient is currently engaged in therapy. Plan: - Continue therapy to address mood symptoms, sleep disturbance, and cognitive issues. - Encourage patient to discuss any concerns or challenges during therapy sessions. 03/14/2024 Alcohol abuse, uncomplicated (ICD-10 - F10.10) Multiple Sclerosis (MS) - Assessment: MRI showed no changes in the past three years, which is a positive sign for the patient's MS management. - Plan: Continue current treatment plan and follow up with Dr. Farris as needed. Attention Deficit Hyperactivity Disorder (ADHD) - Assessment: Patient has a history of ADHD and is currently on medication for it. Patient reports being on Concerta (extended-relea se methylphenidate ) for ADHD management. - Plan: Encourage patient to continue taking prescribed ADHD medication and follow up with their primary care provider for any adjustments in dosage or medication type. Bipolar Disorder - Assessment: Patient has a history of bipolar disorder and is currently on medication for it. Patient reports improvement in symptoms with current medication compared to previous experiences. - Plan: Encourage patient to continue taking prescribed bipolar medication and follow up with their primary care provider for any adjustments in dosage or medication type. Cognitive Functioning - Assessment: Patient has a cognitive functioning test scheduled for August 27 at [facility]. - Plan: Encourage patient to attend the scheduled test and follow up with their primary care provider for any necessary interventions based on the results. Medication Adherence - Assessment: Patient uses a phone alarm to remember to take medications. - Plan: Encourage patient to continue using this method to ensure medication adherence. Social Support - Assessment: Patient has a history of maintaining friendly relationships with ex-partners and has plans to spend time with their child during the holidays. - Plan: Encourage patient to continue fostering positive relationships and seeking social support as needed. - Assessment: Patient expresses anxiety about returning to work and potential conflicts with coworkers. - Plan: Consider discussing strategies for managing workplace stress and interpersonal relationships. 02/07/2024 Alcohol abuse, uncomplicated (ICD-10 - F10.10) 1. Paranoid symptoms: - Patient reports ongoing paranoid symptoms. No significant changes in mood or manic-type symptoms are reported. Plan: - Continue Caplyta as prescribed. Monitor for any changes in mood or paranoid symptoms. 2. Cognitive impairment and fatigue: - Patient is currently on leave from work due to cognitive impairment, severe fatigue, and worsening balance as per their neurologist. Plan: - Await results from the ordered neuropsych testing and MRI of the brain. - Follow up with the neurologist for further evaluation and management. 3. Sleep and fatigue management: - Patient is on modafinil and Concerta (methylphenidat e ER) for sleep and fatigue management. Plan: - Continue modafinil and Concerta as prescribed. Monitor for any changes in sleep patterns or fatigue levels. 4. Alcohol use: - Patient reports alcohol use but has stopped taking naltrexone. Plan: - Assess the patient's alcohol consumption and consider restarting naltrexone if appropriate. - Encourage the patient to monitor their alcohol intake and seek support if needed. 5. Trazodone discontinuation : - Patient reports not taking trazodone. Plan: - Acknowledge the patient's decision to discontinue trazodone and monitor for any changes in sleep or mood. 6. Follow-up: - Schedule a follow-up appointment to review the results of the neuropsych testing and MRI of the brain. - Monitor the patient's progress and adjust the treatment plan as needed based on the results and any changes in the patient's condition. 04/04/2024 Cognitive impairment (ICD-10 - R41.89) 1. Bipolar disorder: - Patient reports increased irritability and agitation, but no euphoria. - Currently taking Depakote 250 mg once a day, with no noticeable effects. Plan: - Increase Depakote to 500 mg extended release at bedtime. - Continue monitoring mood symptoms and medication adherence. - Follow up in one month. 2. Sleep disturbance: - Patient reports poor sleep quality. Plan: - Assess the impact of increased Depakote dosage on sleep. - Encourage good sleep hygiene practices. - Reevaluate sleep issues at the next visit. 3. Auditory hallucinations: - Patient reports hearing things but not experiencing severe hallucinations. Plan: - Monitor for any changes or worsening of hallucinations. - Reassess at the next visit. 4. Cognitive issues: - Patient reports forgetfulness and word-finding problems, with no changes in MRI lesions for three years. Plan: - Schedule computerized cognitive testing as soon as possible - Consider potential contributing factors such as medication side effects, alcohol use, sleep disturbance, and mood symptoms. - Reevaluate cognitive issues at the next visit. 5. Employment and disability status: - Patient is currently off work due to cognitive issues and plans to return on the . Plan: - Monitor patient's ability to return to work and assess the need for any accommodations or further disability evaluation. 6. Therapy: - Patient is currently engaged in therapy. Plan: - Continue therapy to address mood symptoms, sleep disturbance, and cognitive issues. - Encourage patient to discuss any concerns or challenges during therapy sessions. 04/12/2024 Alcohol abuse, uncomplicated (ICD-10 - F10.10) 05/02/2024 Nicotine dependence, unspecified, uncomplicated (ICD-10 - F17.200) 07/15/2024 Encounter for screening for depression (ICD-10 - Z13.31) 08/27/2024 Encounter for screening for depression (ICD-10 - Z13.31) 07/26/2024 Encounter for screening for cardiovascular disorders (ICD-10 - Z13.6) 09/30/2024 Nicotine use (ICD-10 - Z72.0) 10/22/2024 Cognitive impairment (ICD-10 - R41.89) Creyos test 04/09/24 indicates objective cognitive impairment 09/30/2024 Dietary counseling and surveillance (ICD-10 - Z71.3) 07/26/2024 Dietary counseling and surveillance (ICD-10 - Z71.3) 05/02/2024 Alcohol abuse, uncomplicated (ICD-10 - F10.10) 04/12/2024 Cognitive impairment (ICD-10 - R41.89) Creyos test 04/09/24 indicates objective cognitive impairment 05/02/2024 Cognitive impairment (ICD-10 - R41.89) Creyos test 04/09/24 indicates objective cognitive impairment 07/26/2024 Benign essential HTN (ICD-10 - I10) 09/30/2024 Benign essential HTN (ICD-10 - I10) 09/30/2024 Bipolar disorder, current episode depressed, moderate (ICD-10 - F31.32) 07/26/2024 Bipolar disorder, current episode depressed, moderate (ICD-10 - F31.32) 07/26/2024 Nicotine dependence, unspecified, uncomplicated (ICD-10 - F17.200) 09/30/2024 Nicotine dependence, unspecified, uncomplicated (ICD-10 - F17.200) 07/26/2024 Alcohol abuse, uncomplicated (ICD-10 - F10.10) 09/30/2024 Alcohol abuse, uncomplicated (ICD-10 - F10.10) 07/26/2024 Cognitive impairment (ICD-10 - R41.89) Creyos test 04/09/24 indicates objective cognitive impairment 09/30/2024 Cognitive impairment (ICD-10 - R41.89) Creyos test 04/09/24 indicates objective cognitive impairment 02/07/2024 Other on methylphenidate by pcp, modafanil by neurologist 1. Paranoid symptoms: - Patient reports ongoing paranoid symptoms. No significant changes in mood or manic-type symptoms are reported. Plan: - Continue Caplyta as prescribed. Monitor for any changes in mood or paranoid symptoms. 2. Cognitive impairment and fatigue: - Patient is currently on leave from work due to cognitive impairment, severe fatigue, and worsening balance as per their neurologist. Plan: - Await results from the ordered neuropsych testing and MRI of the brain. - Follow up with the neurologist for further evaluation and management. 3. Sleep and fatigue management: - Patient is on modafinil and Concerta (methylphenidat e ER) for sleep and fatigue management. Plan: - Continue modafinil and Concerta as prescribed. Monitor for any changes in sleep patterns or fatigue levels. 4. Alcohol use: - Patient reports alcohol use but has stopped taking naltrexone. Plan: - Assess the patient's alcohol consumption and consider restarting naltrexone if appropriate. - Encourage the patient to monitor their alcohol intake and seek support if needed. 5. Trazodone discontinuation : - Patient reports not taking trazodone. Plan: - Acknowledge the patient's decision to discontinue trazodone and monitor for any changes in sleep or mood. 6. Follow-up: - Schedule a follow-up appointment to review the results of the neuropsych testing and MRI of the brain. - Monitor the patient's progress and adjust the treatment plan as needed based on the results and any changes in the patient's condition. 04/12/2024 Other he is em pena to be off work 03/09/24- 04/16/24 1. Mood disorder, unspecified: - Patient reports increased stress, worry, and anger, but denies suicidal ideation or self-harm thoughts. - Depakote ER was recently increased to 500 mg. Plan: - Continue Depakote ER 500 mg daily. - Monitor mood symptoms closely. - Follow up in 3 weeks to reassess mood and medication effectiveness. 2. Cognitive impairment: - Cognitive testing on April 09 showed below-average performance in multiple domains, indicating subjective cognitive decline. - The cause of cognitive impairment is still undetermined. Plan: - Provide a copy of cognitive testing results to the patient. - Continue to monitor cognitive function. - Consider further evaluation or referral to a neurologist if cognitive decline persists or worsens. 3. Anxiety: - Patient reports ongoing anxiety, potentially exacerbated by work-related stress. Plan: - Encourage continued therapy sessions with Marianne. - Monitor anxiety levels and consider medication adjustments if necessary during the follow-up visit. 4. Work-related stress and disability claim: - Patient is concerned about returning to work and the impact of their cognitive and mood symptoms on job performance. - Patient needs assistance with disability claim documentation. Plan: - Offer to complete and submit the required documentation for the patient's disability claim. - Encourage open communication with the employer regarding the patient's medical and mental health needs. - Reevaluate work-related stress and its impact on the patient's mental health during the follow-up visit. 5. Follow-up: - Schedule follow-up appointment in 3 weeks or sooner if symptoms worsen or new concerns arise. 04/25/2024 Other Anxiety and Depression - Assessment: Patient reports moderate levels of anxiety and depression, as indicated by the rating scale. Patient mentions feeling down and paranoid about work situations. - Plan: - Continue monitoring patient's mental health status. - Encourage the patient to engage in self-care activities and stress management techniques. Occupational Stress and Potential Disability - Assessment: Patient expresses concerns about job security, potential disability, and ongoing legal issues. Patient reports difficulties at work, including tardiness, missed clock-outs, and concerns about training performance. - Plan: - Encourage the patient to consult with human resources department to address any workplace concerns and explore potential accommodations or disability options. - Recommend seeking support from friends, family, or support groups to help cope with stress related to these issues. 05/02/2024 Other 1. Bipolar disorder: - Patient reports discontinuing Depakote due to side effects and work-related issues. - Currently on Caplyta. Plan: - Continue Caplyta and monitor mood stability. - Schedule a follow-up appointment in one month to reassess the patient's response to the medication and make adjustments if necessary. 2. Anxiety and paranoia: - Patient reports experiencing anxiety and paranoia, particularly in the workplace. Plan: - Encourage the patient to engage in stress-reducing activities. - Consider referring to therapy for additional support in managing anxiety and paranoia. - Reevaluate the need for anxiolytic medication at the next appointment. 3. Alcohol use: - Patient reports low alcohol consumption, with only one episode of drinking in the past week. Plan: - Encourage the patient to continue monitoring and limiting alcohol intake. - Provide resources for support if needed. 4. Gabapentin discontinuation: - Patient has discontinued gabapentin due to memory loss and other side effects. Plan: - Monitor the patient for any withdrawal symptoms or recurrence of symptoms that were previously managed by gabapentin. - Consider alternative medications if necessary. 5. Work-related stress: - Patient reports difficulty focusing and adjusting to work after returning from medical leave. Plan: - Encourage the patient to utilize available resources at work, such as employee assistance programs or accommodations, to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
[2024-12-17 16:24] VITALS: BP 131/86; PULSE 82; RESP 15; TEMP 36.6; O2SAT 100
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
--- OUTSIDE RECORDS SUMMARY | 2024-12-17 19:09 | XMS_ITS | Encounter Summary ---
Author Organization [facility] Healthcare Address [address] [place] [address] Care Team Providers Care Property Manager Name Role Phone Aidan Almonte MD Primary Care Prov ider No, Physician Primary Care Provider [phone] Aidan Almonte MD Primary Care Prov ider Aidan Almonte MD Unavailable + Didier Mccarthy MD Unavailable [phone] Encounter Details Date Type Department Care Team (Late st Contact Info) Description 12/10/2020 Telephone [facility] - [facility] [address] [place] [address] Transcribed Order, Provider Social History Tobacco Use Types Packs/Day Years Used Date Smoking Tobacco: Every Day Cigarettes 1 32 Smokeless Tobacco: Never Alcohol Use Standard Drinks/Week Comments Yes 0 (1 standard drink = 0.6 oz pur e alcohol) occ Sex and Gender Information Value Date Recorded Sex Assigned at Not on file Legal Sex Male 10:13 AM LEG ASSEMBLER Gender Identity Male 06/02/2020 11:12 AM LEG ASSEMBLER Sexual Orientation Straight 06/02/2020 11 :12 AM LEG ASSEMBLER documented as of this encounter Plan of Treatment Not on file documented as of this encounter Visit Diagnoses Not on filedocumented in this encounter Care Teams Property Manager Relationship Specialty Start Date End Date Aidan Almonte MD PCP - General 08/03/16 10/23/21 No, Physician PCP - General 10/24/21 10/24/21 Aidan Almonte MD PCP - General Family Medicine 10/25/21 Aidan Almonte MD 10/24/21 Didier Mccarthy MD [address] [place] [address] [place] [address] Referring Physician Psychiatry 05/05/22 documented as of this encounter
--- OUTSIDE RECORDS SUMMARY | 2024-12-17 19:09 | XMS_ITS | Clinical Summary ---
Author Organization [facility] Address [address] [place] [address] Phone Care Team Providers Care Hoseman Name Role Phone Unavailable Primary Care Provider [...] on file Legal Sex Male 10:30 PM COUNCILLOR [employer]IN[employer]AND [employer]NCIL Gender Identity Not on file Sexual Orientation Not on file Last Filed Vital Signs Vital Sign Reading Time Taken Comments Blood Pressure 104/72 01/30/2015 8:37 AM COUNCILLOR [employer] Pulse 68 01/30/2015 8:37 AM COUNCILLOR [employer] Temperature 36.6 C (97.8 F) 01/30/2015 8:37 AM COUNCILLOR [employer] Respiratory Rate 16 01/30/2015 8:37 AM COUNCILLOR [employer] Oxygen Saturation 98% 01/30/2015 8:37 AM COUNCILLOR [employer] Inhaled Oxygen Concentration - - Weight 81.2 kg (179 lb 1.6 oz) 01/29/2015 3:36 P M COUNCI[employer] Height 185.4 cm (6' 1) 01/28/2015 3:13 PM COUNCILLOR [employer] Body Mass Index 23.63 01/28/2015 3:13 PM COUNCILLOR [employer] Plan of Treatment Health Maintenance Due Date Last Done Comments DTAP/TDAP/TD VACCINES (1 - Tdap) 1993 HEPATITIS B VACCINES (1 of 3 - 19+ 3-dose series) 04/28 COLORECTAL SCREENING 2019 Colorectal Cancer Screening 2019 FIT-DNA Q 3 years 2019 FIT/FOBT Q 1 year 2019 Flex Sig/CT Colonography Q 5 years 2019 ZOSTER VACCINE (1 of 2) 2024 INFLUENZA VACCINE (#1) 2024 Insurance [facility] OPT[employer] PPO [id number] Advance Directives For more information, please contact: [phone] * Full Code (Latest Code Status on File) Date Activated Date Inactivated Comments 01/28/2015 3:14 PM 01/30/2015 2:53 PM
--- OUTSIDE RECORDS SUMMARY | 2024-12-17 19:09 | XMS_ITS | Encounter Summary ---
Author Organization [facility] Healthcare Address [address] [place] [address] Care Team Providers Care Smoking Pipes Cleaner Name Role Phone Aidan Almonte MD Primary Care Prov ider Aidan Almonte MD Unavailable + Didier Mccarthy MD Unavailable [phone] Encounter Details Date Type Department Care Team (Late st Contact Info) Description 06/11/2024 Telephone [facility] [address] [address] Elizabeth Garcia, NATALIE Social History Tobacco Use Types Packs/Day Years Used Date Smoking Tobacco: Every Day Cigarettes 1 35 Smokeless Tobacco: Never Alcohol Use Standard Drinks/Week Comments Yes 0 (1 standard drink = 0.6 oz pur e alcohol) occ Sex and Gender Information Value Date Recorded Sex Assigned at Not on file Legal Sex Male 10:13 AM COTTON BALL BAGGER Gender Identity Male 06/02/2020 11:12 AM COTTON BALL BAGGER Sexual Orientation Straight 06/02/2020 11 :12 AM COTTON BALL BAGGER documented as of this encounter Plan of Treatment Not on file documented as of this encounter Visit Diagnoses Not on filedocumented in this encounter Care Teams Smoking Pipes Cleaner Relationship Specialty Start Date End Date Aidan Almonte MD PCP - General Family Medicine 10/25/21 Aidan Almonte MD 10/24/21 Didier Mccarthy MD [address] [address] Referring Physician Psychiatry 05/05/22 documented as of this encounter
--- OUTSIDE RECORDS SUMMARY | 2024-12-17 19:09 | XMS_ITS | Clinical Summary ---
Author Organization [facility] Address [address] [place] [address] Care Team Providers Care Rib Chopper Name Role Phone Aidan Almonte MD Primary Care Prov ider Aidan Almonte MD Unavailable + Didier Mccarthy MD Unavailable [phone] Allergies No known active allergies Medications OCRELIZUMAB [...] needed Assessment & Plan (05/05/2022 7:54 AM PEDIATRIC SPORTS MEDICINE SPECIALIST): Viagra as needed Bipolar disorder with moderate depression 2022 Assessment & Plan (01/11/2024 5:40 PM CDT): Caplyta Worsening disease with paranoid thoughts in June 2023 Psychiatry follow-up Assessment & Plan (05/05/2022 7:54 AM PEDIATRIC SPORTS MEDICINE SPECIALIST): Abilify 2 mg daily Psychiatry follow-up Second [...] balance. Assessment & Plan (05/05/2022 7:53 AM PEDIATRIC SPORTS MEDICINE SPECIALIST): Moderate periventricular white matter lesions consistent with [...] Type Department Care Team Description 12/02/2024 Telephone [facility] in [facility] [address] [facility] [address] [phone] [facility] 12/20/2024 (Auth# [id number], 06/20/24-06/20/25) 11/27/2024 Telephone [facility] Care [address] [facility] [address] [address] Carol Isaacs LPN [place] [facility] Paperwork 11/20/2024 2:45 PM CDT Lab [facility] [address] 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); Bipolar disorder with moderate depression (HCC); Erectile dysfunction due to diseases classified elsewhere; Neurogenic bladder from Last 3 Months Immunizations Immunization Administration Dates Next Due Datacratic (J&J) SARS-CoV-2 Vaccination 01/11/2021 Tdap 10/24/2021 Surgical [...] on file Legal Sex Male 10:13 AM PEDIATRIC SPORTS MEDICINE SPECIALIST Gender Identity Male 06/02/2020 11:12 AM PEDIATRIC SPORTS MEDICINE SPECIALIST Sexual Orientation Straight 06/02/2020 11 :12 AM PEDIATRIC SPORTS MEDICINE SPECIALIST Obstetrics History Last Filed Vital Signs Vital [...] Tdap) 10/25/2031 Medical Devices Implanted Type Area Toy Packer Device Identifier Shelf Expiration Date Model / [...] Immunoglobulin A 344 70 - 400 mg/dL [facility]3] Immunoglobulin M 36(L) 40 - 230 mg/dL [facility]3] Blood 11/20/2024 2:43 PM CDT 11/20/2024 7:25 PM CDT us Medardo Farris MD LAB BLOOD ORDERABLES Final Re sult [facility]3] [address] Department [place] [address] * eGFR (11/20/2024 2:43 PM CDT) Pathologist [facility] eGFR >90 >=60 mL/min/1. 73 m2 Comment: [...] MD LAB BLOOD ORDERABLES Final Re sult [facility]3] [address] Department [place] [address] * (ABNORMAL) Differential, auto (11/20/2024 2:43 PM CDT) Neutrophil abs 5.09 1.50 - 6.50 K/cumm Imm gran abs 0.02 0.00 - 0.10 K/cumm [facility]3] Lymphocyte abs 1.46 0.80 - 3.30 K/cumm [facility]3] Monocyte abs 1.12(H) 0.20 - 0.80 K/cumm [facility]3] Eosinophil abs 0.12 0.00 - 0.50 K/cumm [facility]3] Basophil abs 0.07 0.00 - 0.10 K/cumm [facility]3] Neutrophil pct 64.6 % [facility]3] Comment: Interpretive Data Percent cell count reference ranges are not reported, since discordance with absolute values may lead to misinterpretation of CBC data. Current Interpretive Data was last revised on 2017. Imm gran pct 0.3 % [facility]3] Comment: Interpretive Data Percent cell count reference ranges are not reported, since discordance with absolute values may lead to misinterpretation of CBC data. Current Interpretive Data was last revised on 2017. Lymphocyte pct 18.5 % [facility]3] Comment: Interpretive Data Percent cell count reference ranges are not reported, since discordance with absolute values may lead to misinterpretation of CBC data. Current Interpretive Data was last revised on 2017. Monocyte pct 14.2 % [facility]3] Comment: Interpretive Data Percent cell count reference ranges are not reported, since discordance with absolute values may lead to misinterpretation of CBC data. Current Interpretive Data was last revised on 2017. Eosinophil pct 1.5 % [facility]3] Comment: Interpretive Data Percent cell count reference ranges are not reported, since discordance with absolute values may lead to misinterpretation of CBC data. Current Interpretive Data was last revised on 2017. Basophil pct 0.9 % [facility]3] Comment: Interpretive Data Percent cell count reference ranges are not reported, since discordance with absolute values may lead to misinterpretation of CBC data. Current Interpretive Data was last revised on 2017. Blood 11/20/2024 2:43 PM CDT 11/20/2024 7:25 PM CDT Medardo Farris MD LAB BLOOD ORDERABLES Final Re sult Performing Organization Address City/[facility]/ZIP Co de Phone Number [facility]3] [address] [employer] [place], [place] [id number] * (ABNORMAL) CBC with auto differential (11/20/2024 2:43 PM CDT) WBC 7.88 3.80 - 9.90 K/cumm Hgb 18.0(H) 13.0 - 17.5 g/dL [facility]3] Hct 52.1(H) 38.9 - 50.3 % [facility]3] Plt 236 150 - 400 K/cumm [facility]3] MPV 10.5 9.1 - 12.3 fL [facility]3] RBC 5.52 4.30 - 5.80 M/cumm [facility]3] MCV 94.4 81.3 - 96.4 fL [facility]3] MCH 32.6 27.1 - 33.3 pg [facility]3] MCHC 34.5 32.3 - 35.7 g/dL [facility]3] RDW CV 13.6 11.1 - 14.9 % [facility]3] RDW SD 47.0 35.7 - 48.1 fL [facility]3] NRBC abs 0.00 0.00 - 0.01 K/cumm [facility]3] Blood 11/20/2024 2:43 PM CDT 11/20/2024 7:25 PM CDT Medardo Farris MD LAB BLOOD ORDERABLES Final Re sult Performing Organization Address City/[facility]/ZIP Co de Phone Number [facility]3] [address] Department [employer] [place], [place] [id number] * (ABNORMAL) Comprehensive metabolic panel (11/20/2024 2:43 PM CDT) Sodium 139 135 - 145 mmol/L Potassium, pl 4.3 3.3 - 4.9 mmol/L [facility]3] Chloride 102 97 - 110 mmol/L [facility]3] CO2 25 22 - 32 mmol/L [facility]3] Anion gap 12 2 - 15 mmol/L [facility]3] BUN 13 6 - 25 mg/dL [facility]3] Creatinine 0.78(L) 0.80 - 1.30 mg/dL [facility]3] Glucose 105 70 - 199 mg/dL [facility]3] Comment: Interpretive Data Fasting glucose >/= 126 [...] 2022. Calcium 9.8 8.5 - 10.3 mg/dL [facility]3] Bilirubin, total 0.3 0.1 - 1.2 mg/dL [facility]3] Protein, pl 7.4 6.5 - 8.5 g/dL [facility]3] Albumin 4.3 3.5 - 5.0 g/dL [facility]3] Alk phos 89 40 - 130 Units/L [facility]3] ALT 26 7 - 55 Units/L [facility]3] AST 16 10 - 50 Units/L [facility]3] Blood 11/20/2024 2:43 PM CDT 11/20/2024 7:25 PM CDT us Medardo Farris MD LAB BLOOD ORDERABLES Final Re sult [facility]3] [address] Department [place] [address] from Last 3 Months Insurance [facility] [place] Advance Directives For more information, please contact: [phone] * Full Code (Latest Code Status on File) Date Activated Date Inactivated Comments 10/24/2021 6:36 PM 10/31/2021 8:31 PM Care Teams Rib Chopper Relationship Specialty Start Date End Date Aidan Almonte MD PCP - General Family Medicine 10/25/21 Aidan Almonte MD 10/24/21 Didier Mccarthy MD [address] [place] [address] [place] [address] Referring Physician Psychiatry 05/05/22
--- OUTSIDE RECORDS SUMMARY | 2024-12-17 19:09 | XMS_ITS | Encounter Summary ---
Author Organization [facility] Address [address] [place] [address] Phone Care Team Providers Care Farm Consultant Name Role Phone Aidan Almonte MD Primary Care Prov ider Aidan Almonte MD Unavailable + Didier Mccarthy MD Unavailable [phone] Reason for Visit * Reason Onset Date Comments IMPAIRMENT RATING 03/22/2022 Encounter Details Date Type Department Care Team (Late st Contact Info) Description 03/22/2022 Telephone [facility] 6th [place] [address] [place] [address] Vandana Pal RN IMPAIRMENT RATING Social History Tobacco Use Types Packs/Day Years Used Date Smoking Tobacco: Every Day Cigarettes 1 35 Smokeless Tobacco: Never Alcohol Use Standard Drinks/Week Comments Yes 0 (1 standard drink = 0.6 oz pur e alcohol) occ Sex and Gender Information Value Date Recorded Sex Assigned at Not on file Legal Sex Male 10:13 AM SOCIAL WORK MANAGER Gender Identity Male 06/02/2020 11:12 AM SOCIAL WORK MANAGER Sexual Orientation Straight 06/02/2020 11 :12 AM SOCIAL WORK MANAGER documented as of this encounter Plan of Treatment Not on file documented as of this encounter Visit Diagnoses Not on filedocumented in this encounter Care Teams Farm Consultant Relationship Specialty Start Date End Date Aidan Almonte MD PCP - General Family Medicine 10/25/21 Aidan Almonte MD 10/24/21 Didier Mccarthy MD [address] [place] [address] [place] [address] Referring Physician Psychiatry 05/05/22 documented as of this encounter
--- OUTSIDE RECORDS SUMMARY | 2024-12-17 19:09 | XMS_ITS | Encounter Summary ---
Author Organization [facility] Healthcare Address [address] [place] [address] Care Team Providers Care Meter Readers Supervisor Name Role Phone Aidan Almonte MD Primary Care Prov ider Aidan Almonte MD Unavailable + Didier Mccarthy MD Unavailable [phone] Encounter Details Date Type Department Care Team (Late st Contact Info) Description 05/29/2023 Telephone [facility] [address] [address] Elizabeth Garcia, NATALIE Social History Tobacco Use Types Packs/Day Years Used Date Smoking Tobacco: Every Day Cigarettes 1 35 Smokeless Tobacco: Never Alcohol Use Standard Drinks/Week Comments Yes 0 (1 standard drink = 0.6 oz pur e alcohol) occ Sex and Gender Information Value Date Recorded Sex Assigned at Not on file Legal Sex Male 10:13 AM SPLICER APPRENTICE Gender Identity Male 06/02/2020 11:12 AM SPLICER APPRENTICE Sexual Orientation Straight 06/02/2020 11 :12 AM SPLICER APPRENTICE documented as of this encounter Plan of Treatment Not on file documented as of this encounter Visit Diagnoses Not on filedocumented in this encounter Care Teams Meter Readers Supervisor Relationship Specialty Start Date End Date Aidan Almonte MD PCP - General Family Medicine 10/25/21 Aidan Almonte MD 10/24/21 Didier Mccarthy MD [address] [facility] [address] Referring Physician Psychiatry 05/05/22 documented as of this encounter
[2024-12-17] MEDS: HYDROcodone/acetaminophen (*CRX) 5-325 MG TABLET 1 TAB PO (19:12)
[2024-12-17] MEDS: CYCLOBENZAPRINE HCL 10 MG TABLET PO (19:13)
[2024-12-17 19:17] VITALS: BP 132/75; PULSE 67; RESP 18; O2SAT 99
== END 2024-12-17 19:18 | disposition home or self-care (01) ==
PROVIDERS: Emergency Provider Student in an Organized Health Care Education/Training Program; PCP Nurse Practitioner Family
DX: S19.9XXA Unspecified injury of neck, initial encounter (principal); S29.9XXA Unspecified injury of thorax, initial encounter; G35 Multiple sclerosis; I10 Essential (primary) hypertension; I65.23 Occlusion and stenosis of bilateral carotid arteries; G47.33 Obstructive sleep apnea (adult) (pediatric); F90.0 Attention-deficit hyperactivity disorder, predominantly inattentive type; F17.210 Nicotine dependence, cigarettes, uncomplicated; Z79.620 Long term (current) use of immunosuppressive biologic; Z79.899 Other long term (current) drug therapy; V49.40XA Driver injured in collision with unspecified motor vehicles in traffic accident, initial encounter
CPT/HCPCS: 70450; 72125; 72128; 99284; A9270